=== PATIENT | female | born 1935 | race Caucasian/White ===

== ENCOUNTER → 2016-05-22 | Outpatient (CLI) | payer OTHER ==
[~2016-05-22] MED LIST: ASPIRIN EC325 MG PO; CELECOXIB200 MG PO; EFFEXOR XR150 MG PO; ENDOCET 5-3251 EACH PO; IRON325 M1 PO; SENNA-TIME S T1 EACH PO; TIMOPTIC-XE GEL5 ML BOTH EYES; ULTRAM ER100 MG PO
== END | disposition home or self-care (01) ==
DX: M17.11 Unilateral primary osteoarthritis, right knee (principal); R26.2 Difficulty in walking, not elsewhere classified; M62.81 Muscle weakness (generalized); M25.661 Stiffness of right knee, not elsewhere classified
CPT/HCPCS: 97110 GP; 97161 GP; G8978 GP; G8979 GP; G8980 GP

== ENCOUNTER 2016-06-26 06:44 | Inpatient (IN) | payer OTHER ==
[~2016-06-26] VITALS: Ht 157.5 cm; Wt 93.0 kg
[~2016-06-26 06:44] MED LIST changes: +EFFEXOR XR75 MG PO; +HYDROCODON-ACE1 EAC7 PO
[2016-06-26 07:44] VITALS: BP 149/77
[2016-06-26 12:32] LABS: HEMATOCRIT 30.5 % (36.0-46.0); MCH 27.2 PG (29.0-34.0); MCHC 29.8 G/DL (30.0-36.0); MCV 91.3 FL (83-99); MEAN PLAT.VOLUME 10.3 uM^3 (9.5-12.4); RBC DIS.WIDTH-CV 15.2 % (11.8-14.6); RBC DIS.WIDTH-SD 50.1 % (39-53); RED BLOOD COUNT 3.34 M/uL (3.80-5.20); WHITE BLOOD COUNT 5.2 K/uL (4.1-10.2)
[2016-06-26 12:44] LABS: PLATELET COUNT 236 K/uL (156-360)
[2016-06-26 14:05] VITALS: BP 138/65
[2016-06-26 15:37] VITALS: BP 138/65
[2016-06-26 20:11] VITALS: BP 118/83
[2016-06-26 20:30] VITALS: BP 137/60
[2016-06-27] VITALS (7 sets, daily range): BP systolic 110–178; BP diastolic 54–71
[2016-06-27 05:35] LABS: HEMATOCRIT 26.9 % (36.0-46.0); MCV 90.6 FL (83-99)
[2016-06-27 06:03] LABS: ANION GAP 4 MEQ/L (2-14); CHLORIDE 104 MEQ/L (99-109); GFR ESTIMATE (CALCULATED) > 59 mL/min/; GLUCOSE 116 mg/dL (70-99); POTASSIUM 4.4 MEQ/L (3.7-5.4); SAMPLE HEMOLYSIS CHECK 0; SAMPLE ICTERIC CHECK 0; SAMPLE LIPEMIA CHECK 0; SODIUM 136 MEQ/L (136-147); UREA NITROGEN (BUN) 20 mg/dL (9-23)
[2016-06-28 03:57] VITALS: BP 141/69
[2016-06-28 05:34] LABS: HEMATOCRIT 27.4 % (36.0-46.0); MCV 87.3 FL (83-99)
[2016-06-28 08:45] VITALS: BP 168/80
[2016-06-28 11:47] VITALS: BP 132/63
[2016-06-28 15:08] VITALS: BP 143/63
[2016-06-28 18:04] VITALS: BP 143/63
[2016-06-28 23:43] VITALS: BP 155/73
[2016-06-29 07:00] VITALS: BP 133/67
[2016-06-29] MEDS ORDERED: HYDROCODON-ACE1 EAC7 PO (07:55)
[2016-06-29] MEDS ORDERED: LOVENOX40 MG/0.4 SC (07:55)
[2016-06-29] MEDS ORDERED: SENNA PLUS TAB1 EACH PO (07:55)
[2016-06-29 12:44] VITALS: BP 136/64
== END 2016-06-29 13:35 | DRG 470 ==
LOC: 2SOUTH 06:44 → 3EAST 06:44 → 3WEST 06:44 → 2SOUTH 09:31 → 3WEST 13:47 → 2SOUTH 15:35 → 3WEST 06-28 07:04 → 3EAST 06-28 17:48
PROVIDERS: Orthopaedic Surgery
PROC: 0SRC0J9 Replacement of Right Knee Joint with Synthetic Substitute, Cemented, Open Approach (ICD-10-PCS; principal; 2016-06-26)
DX: M17.11 Unilateral primary osteoarthritis, right knee (principal); F32.9 Major depressive disorder, single episode, unspecified; Z88.1 Allergy status to other antibiotic agents; Z91.040 Latex allergy status; Z96.652 Presence of left artificial knee joint
CPT/HCPCS: 71010; 73560; 80048; 85014; 85018; 85027; 93005; 94799; J0131; J1170; J1650; J1885; J2250; J2405; J3010; J7050